=== PATIENT | female | born 1980 | race Caucasian/White ===

== ENCOUNTER 2018-11-22 18:38 | Emergency (ER) | payer SELFPAY ==
[2018-11-22] MEDS ORDERED: Promethazine 6.25 MG/5 ML Liquid ML (473 ML Bottle) PO ONE (19:09)
[2018-11-22] MEDS ORDERED: Metoclopramide 10 MG/2 ML SDV IVPUSH ONE (19:10)
[2018-11-22] MEDS ORDERED: Ketorolac 30 MG/ML SDV IVPUSH ONE (19:10)
[2018-11-22] MEDS ORDERED: Sodium Chloride 0.9% 1,000 ML IV SCH (19:15)
--- NOTE | 2018-11-22 19:17 | EDM.PDOC ---
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, pt making a cake at 2:30p and became dizzy, room began to spin, felt better when she laid down but only with her eyes closed has a R sided ROMAN which is typical for her migraines, several months since her last migraine, took Advil Migraine x 2 which did not help did not take meds for her dizziness which she has had several times in the past has numbness of her face and right hand her friend is a nurse and come over to help, after 2h friend brought her to the hospital once they were able to get someone to watch her son says she is feeling double has some N, no V no f/c/d possible L sided weakness per nursing, not reproducible however R sided headache Pain Score (Numeric/FACES): 9 - Related Data Allergies Allergy/AdvReac Type Severity Reaction Status Date / Time latex Allergy Rash Verified 11/22/18 18:52 Home Meds: Home Meds Budesonide/Formoterol [Symbicort 160-4.5 MCG] 2 puff BID 11/22/18 [History] Levothyroxine 200 mcg PO ACBREAKFAST 11/22/18 [History] Meclizine HCl 25 mg PO TID PRN #21 tablet 11/22/18 [Rx] traZODone HCl [Trazodone HCl] 50 mg PO BEDTIME 11/22/18 [History] ED ROS GENERAL - Review of Systems Review Of Systems: See Below Constitutional: Reports: Weakness HEENT: Reports: No Symptoms Respiratory: Reports: No Symptoms Cardiovascular: Reports: No Symptoms Endocrine: Reports: No Symptoms GI/Abdominal: Reports: Nausea : Reports: No Symptoms Musculoskeletal: Reports: No Symptoms Skin: Reports: No Symptoms Neurological: Reports: Dizziness, Headache, Numbness Psychiatric: Reports: Anxiety Hematologic/Lymphatic: Reports: No Symptoms Immunologic: Reports: No Symptoms ED EXAM, DIZZINESS - Physical Exam Exam: See Below Exam Limited By: No Limitations General Appearance: Alert, WD/WN, Other (pleasant, normal speech, holding emesis bag, cooperative, inc'd BMI) Eye Exam: Bilateral Eye: EOMI, PERRL Ears: Normal External Exam, Normal Canal, Hearing Grossly Normal Nose: Normal Inspection, Normal Mucosa, No Blood Throat/Mouth: Normal Inspection, Normal Lips, Normal Teeth, Normal Gums, Normal Oropharynx, Normal Voice, No Airway Compromise Head Exam: Atraumatic, Normocephalic Neck: Normal Inspection, Supple, Non-Tender, Full Range of Motion. No: Lymphadenopathy (R), Lymphadenopathy (L) Respiratory/Chest: No Respiratory Distress, Lungs Clear, Normal Breath Sounds, No Accessory Muscle Use, Chest Non-Tender Cardiovascular: Regular Rate, Rhythm, No Edema, No Gallop, No JVD, No Murmur, No Rub GI/Abdominal: Soft, Non-Tender, No Distention Neurological: Alert, Oriented x 3, Other (ankle flex/ext 5/5 b/l, hand rn enterostomal wnl b/l, face symmetric, old thyroidectomy scar, nonspecific tender to light touch of skin of neck b/l, becomes anxioius) Back Exam: Normal Inspection Extremities: Normal Inspection, No Pedal Edema Psychiatric: Anxious Skin Exam: Warm, Dry, Intact, Normal Color, No Rash Course - Vital Signs Last Recorded V/S: Last Vital Signs Temp 36.6 C 11/22/18 18:38 Pulse 60 11/22/18 18:38 Resp 18 11/22/18 18:38 BP 111/56 L 11/22/18 18:38 Pulse Ox 100 11/22/18 18:38 - Orders/Labs/Meds Orders: Active Orders 24 hr Category Date Time Status URINALYSIS W/MICROSCOPIC [UA W/MICROSCOPIC] [URIN] Stat Lab 11/22/18 19:06 Ordered Sodium Chloride 0.9% [Normal Saline] 1,000 ml Med 11/22/18 19:15 Active IV ASDIRECTED Medication Orders Sodium Chloride (Normal Saline) 1,000 mls @ 999 mls/hr IV ASDIRECTED STEPHANIE Last Admin: 11/22/18 20:20 Dose: 999 mls/hr Labs: Laboratory Tests 11/22/18 11/22/18 11/22/18 Range/Units 18:53 18:53 18:53 WBC 6.5 (4.5-12.0) X10-3/uL RBC 4.08 (3.23-5.20) x10(6)uL Hgb 11.2 L (11.5-15.5) g/dL Hct 33.4 (30.0-51.3) % MCV 81.7 (80-96) fL MCH 27.3 L (27.7-33.6) pg MCHC 33.4 (32.2-35.4) g/dL RDW 13.6 (11.5-15.5) % Plt Count 306 (125-369) X10(3)uL MPV 8.3 (7.4-10.4) fL Neut % (Auto) 68.6 (46-82) % Lymph % (Auto) 22.0 (13-37) % [place] % (Auto) 7.9 (4-12) % Eos % (Auto) 1 (1.0-5.0) % Baso % (Auto) 0 (0-2) % Neut # (Auto) 4.5 (1.6-8.3) # Lymph # (Auto) 1.4 (0.6-5.0) # [place] # (Auto) 0.5 (0.0-1.3) # Eos # (Auto) 0.1 (0.0-0.8) # Baso # (Auto) 0.0 (0.0-0.2) # Sodium 143 (135-145) mmol/L Potassium 3.5 (3.5-5.3) mmol/L Chloride 107 (100-110) mmol/L Carbon Dioxide 27 (21-32) mmol/L BUN 14 (7-18) mg/dL Creatinine 0.8 (0.55-1.02) mg/dL Est Cr Clr Drug Dosing TNP Estimated GFR (MDRD) > 60 (>60) BUN/Creatinine Ratio 17.5 (9-20) Glucose 98 (80-116) mg/dL Calcium 8.3 L (8.6-10.2) mg/dL Total Bilirubin 0.2 (0.1-1.3) mg/dL AST 12 (5-25) IU/L ALT 21 (12-36) U/L Alkaline Phosphatase 58 (56-112) IU/L C-Reactive Protein 1.2 H (0.5-0.9) mg/dL Total Protein 6.5 (6.0-8.0) g/dL Albumin 3.4 L (3.5-5.2) g/dL Globulin 3.1 g/dL Albumin/Globulin Ratio 1.1 Meds: Medications Generic Name Dose Route Start Last Admin Trade Name Cynthia PRN Reason Stop Dose Admin Sodium Chloride 1,000 mls @ 999 mls/hr 11/22/18 19:15 11/22/18 20:20 Normal Saline IV 999 mls/hr ASDIRECTED STEPHANIE Administration Discontinued Medications Generic Name Dose Route Start Last Admin Trade Name Cynthia PRN Reason Stop Dose Admin Ketorolac Tromethamine 30 mg 11/22/18 19:10 11/22/18 20:29 Toradol IVPUSH 11/22/18 19:11 30 mg ONETIME ONE Administration Metoclopramide HCl 10 mg 11/22/18 19:10 11/22/18 20:26 Reglan IVPUSH 11/22/18 19:11 10 mg ONETIME ONE Administration Promethazine HCl 12.5 mg 11/22/18 19:09 11/22/18 20:40 Phenergan PO 11/22/18 19:10 Not Given NOW ONE Promethazine HCl Confirm 11/22/18 20:34 Phenergan Administered 11/22/18 20:35 Dose 25 mg .ROUTE .STK-MED ONE Promethazine HCl 12.5 mg 11/22/18 20:39 11/22/18 20:40 Phenergan PO 11/22/18 20:40 12.5 mg ONETIME ONE Administration - Re-Assessments/Exams Free Text/Narrative Re-Assessment/Exam: 11/22/18 21:35 pt sitting up on edge of bed, smiling, cheerful, N gone, dizzy gone, ROMAN gone labs neg except CRP 1.2, c/w viral labyrinthitis Departure - Departure Time of Disposition: 21:35 Disposition: Home, Self-Care 01 Condition: Good Clinical Impression: Acute viral labyrinthitis, Dehydration, Migraine - Discharge Information *PRESCRIPTION DRUG MONITORING PROGRAM REVIEWED*: Not Applicable *COPY OF PRESCRIPTION DRUG MONITORING REPORT IN PATIENT DAVID: Not Applicable Prescriptions: Meclizine HCl 25 mg PO TID PRN #21 tablet PRN Reason: Dizziness Instructions: Labyrinthitis Additional Instructions: To break the pain cycle, continue ibuprofen 200 mg 3 tabs and acetaminophen 500 mg 2 tabs with meals and bedtime for 4 more doses. For dizziness, take meclizine 25 mg 1 tab 3 times a day for 2 days, then every 8 hours as needed. Increase fluids. Get adequate rest. See your doctor or return to ED if you start feeling worse. - My Orders Last 24 Hours: My Active Orders 11/22/18 19:06 URINALYSIS W/MICROSCOPIC [UA W/MICROSCOPIC] [URIN] Stat 11/22/18 19:15 Sodium Chloride 0.9% [Normal Saline] 1,000 ml IV ASDIRECTED - Assessment/Plan Last 24 Hours: My Active Orders 11/22/18 19:06 URINALYSIS W/MICROSCOPIC [UA W/MICROSCOPIC] [URIN] Stat 11/22/18 19:15 Sodium Chloride 0.9% [Normal Saline] 1,000 ml IV ASDIRECTED
[2018-11-22] MEDS ORDERED: Promethazine 25 MG Tab ONE (20:34)
[2018-11-22] MEDS ORDERED: Promethazine 25 MG Tab PO ONE (20:39)
[2018-11-23 02:11] VITALS: BP 102/49; PULSE 59
== END 2018-11-22 22:00 | disposition home or self-care (01) ==
LOC: FB.ED 18:38
DX: H83.09 Labyrinthitis, unspecified ear (principal); E86.0 Dehydration; G43.909 Migraine, unspecified, not intractable, without status migrainosus; Z91.040 Latex allergy status
CPT/HCPCS: 36415; 80053; 81001; 85025; 86140; 96361; 96374; 96375; 99284; A9270; J1885; J2765; J7030